=== PATIENT | male | born 1940 | race Caucasian/White ===

== ENCOUNTER 2019-02-02 20:49 | Inpatient (IN) | payer OTHER ==
[~2019-02-02] VITALS: Ht 188 cm; Wt 81.7 kg
[~2019-02-02 20:49] MED LIST: CALCIUM 600 +1 EAC3 PO; FOLIC ACID1 MG PO; IRON325 M1 PO; LANTUS100 UNITS/ SUB-Q; LEVAQUIN500 MG PO; LUBRICANT DRY E15 ML OU; LUBRICANT EYE3.5 G2 OU; MACULAR VITAMI1 EACH PO; MULTI-DAY VITA1 EACH PO; NOVOLOG FL100 UNIT/1 SUB-Q; SENNA LAXATIVE1 EACH PO; VITAMIN C250 MG PO
[2019-02-02] MEDS ORDERED: ZOFRAN4 MG PO (21:03)
--- NOTE | 2019-02-03 15:37 | EKG ---
[facility] [address] [facility] [address] [place] [address] Signed Sinus rhythm with premature atrial complexes Left bundle branch block Abnormal ECG No previous ECGs available Confirmed by SAUL DUNN MD ([id number]) on 02/03/2019 3:37:13 PM Electronically Signed By: SAUL DUNN MD 02/03/19 1537 PATIENT NAME: VALENTINA CHACON Electrocardiogram DATE OF : 44 PHYSICIAN: SAUL DUNN MD REPORT #: [id number] REPORT IS CONFIDENTIAL AND NOT TO BE RELEASED WITHOUT AUTHORIZATION
[2019-02-05] MEDS ORDERED: SODIUM FLUORIDE51 GM MM (09:25)
[2019-02-05] MEDS ORDERED: GLUCOSE4 GM PO (09:27)
[2019-02-05] MEDS ORDERED: PROSTATE CONTR1 EACH PO (11:02)
[2019-02-05] MEDS ORDERED: VITAMIN C500 M1 PO (11:03)
[2019-02-07] MEDS ORDERED: BACTRIM DS TAB1 EACH PO (11:52)
[2019-02-07] MEDS ORDERED: METOPROLOL SUCC25 MG PO (11:52)
== END 2019-02-07 14:43 | disposition home health service (06) | DRG 872 ==
LOC: ED 20:49 → MS 02-03 00:20 → CCU 02-03 00:20 → MS 02-04 10:20
PROVIDERS: ADMIT Internal Medicine
DX: A41.59 Other Gram-negative sepsis (principal); N30.00 Acute cystitis without hematuria; I47.1 Supraventricular tachycardia; E87.1 Hypo-osmolality and hyponatremia; B96.1 Klebsiella pneumoniae [K. pneumoniae] as the cause of diseases classified elsewhere; E11.65 Type 2 diabetes mellitus with hyperglycemia; N40.1 Benign prostatic hyperplasia with lower urinary tract symptoms; N39.498 Other specified urinary incontinence; R39.14 Feeling of incomplete bladder emptying; Z66 Do not resuscitate; Z79.4 Long term (current) use of insulin; Z88.8 Allergy status to other drugs, medicaments and biological substances; Z99.3 Dependence on wheelchair; Z87.820 Personal history of traumatic brain injury; Z79.899 Other long term (current) drug therapy
CPT/HCPCS: 36415; 51798; 71045; 80048; 80053; 81001; 83036; 83605; 83735; 84132; 84484; 85007; 85025; 85032; 87040; 87077; 87088; 87186; 93005; 93010; 93306; 96374; 97110; 97140; 97162; 97165; 97530; 97535; 99285-25; J0696; J1650; J1815; J2405; J3370; J3475; J3480; J7030; J7060; J7120

== ENCOUNTER → 2019-08-18 | Emergency (ER) | payer OTHER, MEDICARE ==
[~2019-08-18] VITALS: Ht 188 cm; Wt 81.7 kg
[~2019-08-18] MED LIST changes: +BACTRIM DS TAB1 EACH PO; +GLUCOSE4 GM PO; +METOPROLOL SUCC25 MG PO; +PROSTATE CONTR1 EACH PO; +SODIUM FLUORIDE51 GM MM; +VITAMIN C500 M1 PO; +ZOFRAN4 MG PO
--- OUTSIDE RECORDS SUMMARY | 2019-08-18 19:54 | XMS ---
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 Gary has no Care Guidelines for this patient. [facility] T[facility] NOTE: Visits indicate total known visits. ED/C VISIT TRACKING (12 MO.) 08/18/2019 19:[address] [facility] [place] TYPE: Emergency COMPLAINT: - GENERAL ILLNESS [facility]07/2019 16:36 [facility] DIAGNOSES: - Osteomyelitis, unspecified - Toe Redness - toe infection 02/02/2019 20:50 [facility] [place] TYPE: Emergency COMPLAINT: - WEAKNESS INPATIENT VISIT TRACKING (12 MO.) [facility]07/2019 16:[facility] DIAGNOSES: - Osteomyelitis, unspecified 02/03/2019 00:[address] 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 - Klebsiella pneumoniae as the cause of diseases classd elswhr - Supraventricular tachycardia - Feeling of incomplete bladder emptying - Dependence on wheelchair - Acute cystitis without hematuria - FDC (current) use of insulin - Sepsis, unspecified organism Sepsis, u - Allergy status to oth drug/meds/biol subst status - Hypo-osmolality and hyponatremia - Allergy status to oth drug/meds/biol subst status - Supraventricular tachycardia - Do not resuscitate - Personal history of traumatic brain injury - 1 Type 2 diabetes mellitus with hyperglycemia - Personal history of traumatic brain injury - Other Gram-negative sepsis Other Gra - 1 Type 2 diabetes mellitus with hyperglycemia - Hypo-osmolality and hyponatremia - Benign prostatic hyperplasia with lower urinary tract symp - FDC (current) use of insulin - 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
== END ==
LOC: ED 19:51
DX: R33.9 Retention of urine, unspecified (principal); E11.9 Type 2 diabetes mellitus without complications; Z88.6 Allergy status to analgesic agent; Z88.8 Allergy status to other drugs, medicaments and biological substances; Z79.899 Other long term (current) drug therapy; Z79.4 Long term (current) use of insulin
CPT/HCPCS: 51702; 51798; 80053; 81001; 85025; 99283-25

== ENCOUNTER 2020-08-06 22:09 | Emergency (ER) | payer MEDICARE, OTHER ==
[~2020-08-06] VITALS: Ht 188 cm; Wt 79.4 kg
--- OUTSIDE RECORDS SUMMARY | 2020-08-06 22:12 | XMS ---
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 Care History Medical/Surgical 08/19/2019 [facility] \T\middot;\T\nbsp; PATIENT IS A -RECEIVES SERVICES THROUGH [place] IN [place]. \T\middot;\T\nbsp; Location: [address], [place] [address]- [facility] TOTAL 3 NOTE: Visits indicate total known visits. ED/UCC VISIT TRACKING (12 MO.) 08/06/2020 22:09 [facility] [place] TYPE: Emergency COMPLAINT: - FOOT INFECTION 08/18/2019 19:51 [facility] [place] TYPE: Emergency COMPLAINT: - GENERAL ILLNESS DIAGNOSES: - Other halfway (current) drug therapy - Allergy status to other drugs, medicaments and biological substances - Allergy status to analgesic agent - Type 2 diabetes mellitus without complications - Retention of urine, unspecified - emt intermediate (current) use of insulin [facility] DIAGNOSES: - Osteomyelitis, unspecified - Toe Redness - toe infection INPATIENT VISIT TRACKING (12 MO.) [facility]07[facility]2019 [facility] DIAGNOSES: - Osteomyelitis, unspecified [email or web address]
[2020-08-06] MEDS ORDERED: B-121000 MC2 PO (22:41)
[2020-08-06] MEDS ORDERED: GLYDO11 ML MM (22:41)
[2020-08-06] MEDS ORDERED: BETADINE1 EACH TOP (22:43)
[2020-08-06] MEDS ORDERED: ALBUTEROL2.5 MG/3 M INH (22:43)
[2020-08-06] MEDS ORDERED: BACTRIM DS TAB1 EACH PO (22:45)
== END 2020-08-06 23:53 | disposition home or self-care (01) ==
LOC: ED 22:09
DX: L03.031 Cellulitis of right toe (principal); Z88.8 Allergy status to other drugs, medicaments and biological substances; Z88.6 Allergy status to analgesic agent; Z79.899 Other long term (current) drug therapy; Z79.4 Long term (current) use of insulin
CPT/HCPCS: 73660; 99283-25